=== PATIENT | female | born 1950 | race Caucasian/White ===

== ENCOUNTER → 2018-10-27 10:47 | Outpatient (BNVA) | payer MEDICARE, SELFPAY | PROVIDERS: PCP Physician Assistant Medical; Referring Provider Physician Assistant Medical; Visit Provider Orthopaedic Surgery | DX: M19.011 Primary osteoarthritis, right shoulder (principal); I10 Essential (primary) hypertension | CPT/HCPCS: 99211; 99213 ==

== ENCOUNTER 2019-03-15 11:36 | Outpatient (REF) | payer MEDICARE, SELFPAY ==
[2019-03-15 22:04] LABS: Anion Gap 11.9 mmol/L (3-11); BUN 15 mg/dL (7-18); CO2 25.1 mmol/L (21.0-32.0); CREATININE 0.68 mg/dL (0.55-1.02); Calcium 9.4 mg/dL (8.5-10.1); Calculated LDL 144; Chloride 102 mmol/L (98-107); Cholesterol 225 mg/dL (50-200); Glucose 111 mg/dL (70-100); HDL Cholesterol 60 mg/dL (40-60); Potassium 4.1 mmol/L (3.5-5.1); Sodium 139 mmol/L (136-145); Triglyceride 109 mg/dL (30-150)
== END 2019-03-15 11:56 ==
LOC: NCHCN 11:36
PROVIDERS: PCP Physician Assistant Medical; Visit Provider Nurse Practitioner Family
DX: I10 Essential (primary) hypertension (principal)
CPT/HCPCS: 80048; 80061; 83721

== ENCOUNTER 2019-09-06 08:56 | Outpatient (REF) | payer MEDICARE, SELFPAY ==
[2019-09-06 22:14] LABS: ALT 19 U/L (14-59); AST 8 U/L (15-37); HDL Cholesterol 64 mg/dL (40-60); LDL CHOLESTEROL 88 mg/dL (<100)
== END 2019-09-06 09:16 ==
LOC: NCHCN 08:56
PROVIDERS: PCP Nurse Practitioner Family; Visit Provider Nurse Practitioner Family
DX: E78.9 Disorder of lipoprotein metabolism, unspecified (principal)
CPT/HCPCS: 83721; 83718; 84450; 84460

== ENCOUNTER 2019-11-30 09:36 | Outpatient (REF) | payer MEDICARE, SELFPAY ==
[2019-11-30 20:29] LABS: Abs Immature Grans 0.01 k/cumm (0.0-0.09); Absolute Basophil Count 0.02 k/cumm (0.0-0.2); Absolute Eosinophil Count 0.15 k/cumm (0.0-0.7); Absolute Lymphocyte Count 0.78 k/cumm (1.2-3.4); Absolute Monocyte Count 0.48 k/cumm (0.11-0.7); Absolute Neutrophil Count 3.38 k/cumm (1.2-6.7); Basophils % 0.4; Eosinophils % 3.1; HCT 42.6 % (36.0-46.0); HGB 13.8 g/dL (12.0-15.5); Immature Grans % 0.2 %; Lymphocytes % 16.2; Mean Corp. HGB Concentration 32.4 g/dL (32.0-36.0); Mean Corpuscular Hemoglobin 31.9 pg (27.0-33.0); Mean Corpuscular Volume 98.4 fL (80-95); Mean Platelet Volume 11.4 fL (8.0-11.0); Neutrophils % 70.1; Platelet Count 211 x1000/uL (130-400); RBC 4.33 m/cumm (4.00-5.20); RBC Distribution Width 12.9 % (11.7-14.6); White Blood Cell Count 4.82 k/cumm (4.4-10.8)
[2019-11-30 20:42] LABS: ALT 26 U/L (14-59); AST 19 U/L (15-37); Alkaline Phosphatase 118 U/L (46-116); Anion Gap 8.8 mmol/L (3-11); BUN 10 mg/dL (7-18); Bilirubin, Total 0.3 mg/dL (0.2-1.0); CO2 30.2 mmol/L (21.0-32.0); Calcium 9.2 mg/dL (8.5-10.1); Chloride 103 mmol/L (98-107); Glucose 94 mg/dL (74-106); Potassium 3.9 mmol/L (3.5-5.1); Sodium 142 mmol/L (136-145); Total Protein 7.4 g/dL (6.4-8.2)
[2019-11-30 21:02] LABS: Ferritin 81 ng/mL (8-252)
[2019-12-02 10:38] LABS: Transferrin 215 mg/dL (201-352)
== END 2019-11-30 09:56 ==
LOC: NCHCN 09:36
PROVIDERS: Internal Medicine Hematology & Oncology; PCP Nurse Practitioner Family; Visit Provider Nurse Practitioner Family
DX: C50.111 Malignant neoplasm of central portion of right female breast (principal); Z17.0 Estrogen receptor positive status [ER+]; R93.5 Abnormal findings on diagnostic imaging of other abdominal regions, including retroperitoneum
CPT/HCPCS: 80053; 82728; 84466; 85025

== ENCOUNTER 2020-12-28 18:43 | Outpatient (REF) | payer MEDICARE, SELFPAY ==
[2020-12-28 15:46] LABS: Hemoglobin A1C 6.3 % (<5.7)
[2020-12-28 16:28] LABS: ALT 31 U/L (14-59); AST 17 U/L (15-37); Anion Gap 8.4 mmol/L (3-11); BUN 17 mg/dL (7-18); CO2 27.6 mmol/L (21.0-32.0); CREATININE 0.8 mg/dL (0.55-1.02); Chloride 106 mmol/L (98-107); Glucose 114 mg/dL (74-106); HDL Cholesterol 78 mg/dL (40-60); LDL CHOLESTEROL 69 mg/dL (<100); Sodium 142 mmol/L (136-145)
== END 2020-12-28 18:44 | disposition home or self-care (01) ==
LOC: NCHCN 18:43
PROVIDERS: PCP Nurse Practitioner Family; Visit Provider Nurse Practitioner Family
DX: R73.03 Prediabetes (principal); I10 Essential (primary) hypertension; E78.5 Hyperlipidemia, unspecified
CPT/HCPCS: 80048; 83721; 83036; 83718; 84450; 84460

== ENCOUNTER 2022-06-25 14:36 | Outpatient (REF) | payer MEDICARE, SELFPAY ==
[2022-06-25 19:41] LABS: ALT 29 U/L (14-59); AST 15 U/L (15-37); Albumin 3.8 g/dL (3.4-5.0); Alkaline Phosphatase 83 U/L (46-116); Anion Gap 8.6 mmol/L (3-11); BUN 12 mg/dL (7-18); Bilirubin, Total 0.2 mg/dL (0.2-1.0); CO2 28.4 mmol/L (21.0-32.0); CREATININE 0.7 mg/dL (0.55-1.02); Calcium 9.4 mg/dL (8.5-10.1); Chloride 104 mmol/L (98-107); Estimated GFR 91.83 (mL/min/1.73m2); Glucose 95 mg/dL (74-106); HDL Cholesterol 78 mg/dL (40-60); LDL CHOLESTEROL 74 mg/dL (<100); Potassium 3.8 mmol/L (3.5-5.1); Sodium 141 mmol/L (136-145); Total Protein 7.2 g/dL (6.4-8.2)
[2022-06-25 20:02] LABS: Creatine Kinase 59 U/L (26-192)
== END 2022-06-25 14:37 | disposition home or self-care (01) ==
LOC: NCHCN 14:36
PROVIDERS: PCP Nurse Practitioner Family; Visit Provider Nurse Practitioner Family
DX: I10 Essential (primary) hypertension (principal); E78.5 Hyperlipidemia, unspecified
CPT/HCPCS: 80053; 82550; 83721; 83718

== ENCOUNTER 2023-02-04 13:40 | Outpatient (REF) | payer MEDICARE, SELFPAY ==
[2023-02-04 15:47] LABS: Anion Gap 9.7 mmol/L (3-11); BUN 11 mg/dL (7-18); CO2 27.3 mmol/L (21.0-32.0); CREATININE 0.8 mg/dL (0.55-1.02); Calcium 9.2 mg/dL (8.5-10.1); Chloride 105 mmol/L (98-107); Estimated GFR 77.75 (mL/min/1.73m2); Glucose 94 mg/dL (74-106); Sodium 142 mmol/L (136-145)
== END 2023-02-04 13:41 | disposition home or self-care (01) ==
LOC: NCHCN 13:40
PROVIDERS: PCP Nurse Practitioner Family; Visit Provider Nurse Practitioner Family
DX: I10 Essential (primary) hypertension (principal); R73.03 Prediabetes
CPT/HCPCS: 80048

== ENCOUNTER 2023-02-13 00:57 | Outpatient (CLI) | payer MEDICARE, SELFPAY ==
--- NOTE | 2023-02-13 14:01 | DI.US_ITS ---
APPROVED REPORT EXAM: Comprehensive 2D, Doppler, and color-flow Echocardiogram Patient Location: Out-Patient Senior Consultant: Vikash Isidro RDMS, RVT Indications: Systolic heart murmur Other Information Study Quality: Fair. Technically limited study due to body habitus. Conclusion Normal left ventricular wall thickness and chamber size. Ejection fraction is 55%. Wall motion is n ormal Right ventricle is grossly normal in size and function Both atria are normal in size There is no structural or hemodynamically significant valvular disease Wall motion Left Ventricle The left ventricle is normal size. Left ventricular systolic function is normal There is normal left ventricular wall thickness. There are no segmental wall motion abnormalities There is no ventricular septal defect visualized. LVEF is 55%. Right Ventricle Right ventricle is grossly normal in size. Right ventricular systolic function is grossly normal. U nable to assess PA pressure. Atria The left atrium size is normal. The right atrium size is normal. The interatrial septum is intact wit h no evidence for an atrial septal defect. Aortic Valve The aortic valve is normal in structure. Aortic valve is trileaflet. No aortic regurgitation is prese nt. Mitral Valve The mitral valve is normal in structure. No evidence of mitral valve stenosis. Trace mitral regurgita tion. Tricuspid Valve The tricuspid valve is normal in structure. There is no tricuspid valve stenosis. Trace tricuspid reg urgitation. Pulmonic Valve Pulmonic valve is not well visualized. There is no pulmonic valvular stenosis. There is no pulmonic v alvular regurgitation. Great Vessels The aortic root is normal in size. Ascending aorta is not well visualized. Aortic arch is normal in c aliber. IVC is normal in size and collapses >50% with inspiration. Pericardium There is no pericardial effusion. 2D Dimensions IVSD d PLAX 0.65 cm F: 0.6-1.0 LV Vol A2C d MOD 77.4 mL LVPW d PLAX 0.64 cm F: 0.6 - 1.0 LV Vol A4C d MOD 113.6 mL LVID d PLAX 5.10 cm F: 3.8 - 5.2 LA vol/ BSA A4C s A-L 33.9 mL/m2 LVDs 3.75 cm F: 2.2 - 3.5 LA Area A4C s MOD 21.11 cm2 Ao Root d 2.92 cm F: 2.7 - 3.3 LV EF A4C MOD 56.6 % LV EF Teichholz 50.1 % LV EF A2C MOD 53.5 % LVEF (Winston's) 53.63 % F: 54 - 74 LV EF Biplane MOD 53.6 % LV Volume 70.92 mL F: 46 - 106 SV 52.19 mL LV Volume Index 32.38 mL/m2 F: 29 - 61 SV Index 23.88 mL/m2 LV Vol Biplane MOD 97.3 mL FS 25.55 % M-Mode TAPSE 2.66 cm (M/F) >1.7 LV Diastology MV E' medial 0.119 (>0.07 m/s) E/A Ratio 0.7 LV E/e MED 6.00 (<14) MV E Vmax 0.71 (0.4-1.3 m/s) MV E' lateral 0.103 (>0.1 m/s) MV A Vmax 1.00 (0.4-1.3 m/s) LV E/e LAT 6.95 (<14) MV E/A Ratio 0.71 MV E/E' medial 6.00 MV E/E' lateral 6.95 Aortic Valve LVOT Area 3.61 cm2 LVOT Vmax 1.06 m/s LVOT Mean Filipe. 0.72 m/s LVOT Peak Grad 4.5 mmHg LVOT Mean Grad 2.4 mmHg LVOT VTI 0.245 m LVOT Diam s 2.10 cm LVOT SV 88.25 mL Mitral Valve MV DT 128 (160-240 msec) MV PHT 37 msec MV Area PHT 5.95 cm2 MV VTI 0.247 m MV Area VTI 3.58 (4.0-6.0 cm2) Pulmonary Valve PV Vmax 0.90 (0.5-1.5 m/s) RVOT Peak Gr. 1.10 mmHg PV Peak Grad 3.2 mmHg RVOT Mean Gr. 0.55 mmHg PV Mean Grad 2.3 mmHg RVOT VTI 0.130 m PV VTI 0.172 m RVOT Vmax 0.52 m/s Tricuspid Valve RA Pressure 3.00 mmHg
== END 2023-02-13 01:17 ==
LOC: DI 00:57
PROVIDERS: PCP Nurse Practitioner Family; Visit Provider Nurse Practitioner Family
DX: R01.1 Cardiac murmur, unspecified (principal)
CPT/HCPCS: 93306

== ENCOUNTER 2023-07-08 20:34 | Outpatient (REF) | payer MEDICARE, SELFPAY ==
[2023-07-08 16:10] LABS: ALT 28 U/L (14-59); AST 21 U/L (15-37); HDL Cholesterol 69 mg/dL (40-60); LDL CHOLESTEROL 67 mg/dL (<100)
[2023-07-08 16:31] LABS: Creatine Kinase 53 U/L (26-192)
== END 2023-07-08 20:35 | disposition home or self-care (01) ==
LOC: NCHCN 20:34
PROVIDERS: PCP Nurse Practitioner Family; Visit Provider Nurse Practitioner Family
DX: E78.5 Hyperlipidemia, unspecified (principal)
CPT/HCPCS: 82550; 83721; 83718; 84450; 84460

== ENCOUNTER 2024-02-10 12:04 | Outpatient (REF) | payer MEDICARE, SELFPAY ==
[2024-02-10 15:31] LABS: Chloride 105 mmol/L (98-107); Potassium 3.5 mmol/L (3.5-5.1)
[2024-02-10 15:43] LABS: Anion Gap 9.1 mmol/L (3-11); BUN 13 mg/dL (7-18); CO2 27.9 mmol/L (21.0-32.0); CREATININE 0.9 mg/dL (0.55-1.02); Estimated GFR 67.08 (mL/min/1.73m2); Glucose 123 mg/dL (74-106); Sodium 142 mmol/L (136-145)
== END 2024-02-10 12:05 | disposition home or self-care (01) ==
LOC: NCHCN 12:04
PROVIDERS: PCP Nurse Practitioner Family; Visit Provider Nurse Practitioner Family
DX: I10 Essential (primary) hypertension (principal)
CPT/HCPCS: 80048

== ENCOUNTER 2024-12-09 02:58 | Outpatient (CLI) | payer MEDICARE, SELFPAY ==
[2024-12-09 13:19] LABS: Hemoglobin A1C 6.3 % (<5.7)
[2024-12-09 13:50] LABS: ALT 19 U/L (14-59); AST 18 U/L (15-37); Albumin 3.5 g/dL (3.4-5.0); Alkaline Phosphatase 94 U/L (46-116); Anion Gap 5.8 mmol/L (3-11); BUN 11 mg/dL (7-18); Bilirubin, Total 0.24 mg/dL (0.2-1.0); CO2 31.2 mmol/L (21.0-32.0); CREATININE 0.8 mg/dL (0.55-1.02); Calcium 9.1 mg/dL (8.5-10.1); Calculated LDL 53 mg/dL (<100); Chloride 106 mmol/L (98-107); Cholesterol 167 mg/dL (<200); Estimated GFR 77.27 (mL/min/1.73m2); Glucose 152 mg/dL (74-106); HDL Cholesterol 79 mg/dL (40-60); Potassium 3.6 mmol/L (3.5-5.1); Sodium 143 mmol/L (136-145); Total Protein 7.1 g/dL (6.4-8.2); Triglyceride 179 mg/dL (<150)
== END 2024-12-09 02:59 | disposition home or self-care (01) ==
PROVIDERS: Absent Provider Nurse Practitioner Family; PCP Nurse Practitioner Family; Referring Provider Nurse Practitioner Family; Visit Provider Nurse Practitioner Family
DX: E78.5 Hyperlipidemia, unspecified (principal); R73.03 Prediabetes; I10 Essential (primary) hypertension; Z01.818 Encounter for other preprocedural examination; Z85.3 Personal history of malignant neoplasm of breast
CPT/HCPCS: 36415; 80053; 80061; 83036

== ENCOUNTER 2025-05-12 07:52 | Outpatient (REF) | payer MEDICARE, SELFPAY ==
--- NOTE | 2025-05-12 07:40 | SKI_PTH ---
PATIENT: Cindy He LOC: [facility] U#:[id number] AGE/SX: 75/F ROOM: RE05/12/[address]: Oseas Dsouza MD : 1950 BED: DIS: 05/12/2025 SPEC #: [id number] RECD: 05/12/25 12:53 STATUS: RAFAL REQ #: [id number] ESPERANZA: 05/12/25 07:[address]: Oseas Dsouza DEPT: Surgical Specimen RECD BY: Laverne Castillo ENTERED: 05/12/25 12:54 SP TYPE: CATIA AVILA DR: Eunice Gilmore APRN Tissues: 1 - SKIN BIOPSY(SHAVE/PUNCH) Procedures: SKIN LEVEL 4 Comments: [id number]
== END 2025-05-12 07:53 | disposition home or self-care (01) ==
LOC: LBN 07:52
PROVIDERS: PCP Nurse Practitioner Family; Visit Provider Otolaryngology
DX: L57.0 Actinic keratosis (principal); L98.9 Disorder of the skin and subcutaneous tissue, unspecified
CPT/HCPCS: 88305